=== PATIENT | female | born 1995 | race Caucasian/White ===

== ENCOUNTER 2019-04-30 20:44 | Emergency (ER) | payer BC ==
--- NOTE | 2019-04-30 21:18 | ER Report ---
History and Physical Time Seen By MD: 21:15 (NED MORALES DO) Time Seen By MD: 07:09 (KARELY VALENTINE DO) HPI/ROS CHIEF COMPLAINT: Suicidal ideation, depression HISTORY OF PRESENT ILLNESS: 23-year-old female presents ambulatory to the ER complaining of fleeting suicidal ideation for several weeks. Patient was seen by her counselor earlier today for several hours and encouraged to come in. Patient has no specific plan. Patient is being followed weekly by her primary counselor who is on vacation. She was seen by another counselor this earlier today. Patient denies drugs or alcohol. Patient denies previous psychiatric admission. She admits she's had depression in counseling since she was 12 years old. REVIEW OF SYSTEMS: Respiratory: No cough, no dyspnea. Cardiovascular: No chest pain, no palpitations. Gastrointestinal: No vomiting, no abdominal pain. Musculoskeletal: No back pain. (NED MORALES DO) HPI/ROS Please see Dr. Morales's note (KARELY VALENTINE DO) Allergies: Coded Allergies: No Known Drug Allergies (Unverified , 04/30/19) Home Meds Reported Medications Multivits,Ca,Minerals/Iron/FA (Thera M Plus Tablet) 1 Each Tablet, PO QDAY 05/03/19 Hydroxyzine Pamoate (VISTARIL) 50 Mg Capsule, 50 MG PO QHS, #30 CAPSULE 2 Refills 05/03/19 Lurasidone (LATUDA) 80 Mg Tab, 80 MG PO HS, #30 TAB 2 Refills Take with Food 05/03/19 Discontinued Scripts Lorazepam (ATIVAN) 1 Mg Tablet, 1 MG PO Q6-8H PRN for ANXIETY, #6 Prov:NED MORALES DO 05/01/19 Reviewed Nurses Notes: Yes Old Medical Records Reviewed: Yes (NED MORALES DO) Constitutional Vital Sign - Last 24 Hours 04/30/19 04/30/19 05/01/19 05/01/19 20:52 21:14 00:06 00:07 Temp 97.8 Pulse 129 116 110 110 Resp 20 B/P (MAP) 153/116 (128) 155/110 145/104 (118) Pulse Ox 93 96 96 95 O2 Delivery Room Air Room Air (KARELY VALENTINE DO) Physical Exam General Appearance: The patient is alert, has no immediate need for airway protection and no current signs of toxicity. Vital signs stable, afebrile, pulse ox normal, anxious and euphoric HEENT: Pupils equal and round no injection. Oropharynx without redness or exudate, mucous. Membranes are moist Respiratory: Chest is non tender, lungs are clear to auscultation. Cardiac: regular rate and rhythm Gastrointestinal: Abdomen is soft and non tender, no masses, bowel sounds normal. Musculoskeletal: Neck: Neck is supple and non tender. Extremities have full range of motion and are non tender. Skin: No rashes or lesions. DIFFERENTIAL DIAGNOSIS: After history and physical exam differential diagnosis was considered for depression including functional and major depression, situational depression, medication side effect, drugs, suicidal ideation, and alcohol abuse. (NED MORALES DO) Physical Exam Please see Dr. Morales's note (KARELY VALENTINE DO) Medical Decision Making Data Points Laboratory Hematology Test 04/30/19 22:15 White Blood Count 10.9 k/uL (4.5-11.0) Red Blood Count 5.10 M/uL (4.17-5.56) Hemoglobin 15.9 g/dL (12.0-16.0) Hematocrit 45.8 % (34.0-47.0) Mean Corpuscular Volume 89.8 fL (80.0-96.0) Mean Corpuscular Hemoglobin 31.1 pg (26.0-33.0) Mean Corpuscular Hemoglobin Concent 34.7 g/dL (32.0-36.0) Red Cell Distribution Width 13.5 % (11.5-14.5) Platelet Count 309 K/uL (150-450) Mean Platelet Volume 8.9 fL (7.2-11.1) Neutrophils (%) (Auto) 79.5 % (39.4-72.5) H Lymphocytes (%) (Auto) 12.6 % (17.6-49.6) L Monocytes (%) (Auto) 5.9 % (4.1-12.4) Eosinophils (%) (Auto) 1.5 % (0.4-6.7) Basophils (%) (Auto) 0.5 % (0.3-1.4) Nucleated RBC Relative Count (auto) 0.0 /100WBC Neutrophils # (Auto) 8.7 K/uL (2.0-7.4) H Lymphocytes # (Auto) 1.4 K/uL (1.3-3.6) Monocytes # (Auto) 0.6 K/uL (0.3-1.0) Eosinophils # (Auto) 0.2 K/uL (0.0-0.5) Basophils # (Auto) 0.1 K/uL (0.0-0.1) Nucleated RBC Absolute Count (auto) 0.00 K/uL Chemistry Test 04/30/19 22:15 Sodium Level 138 mmol/L (137-145) Potassium Level 3.7 mmol/L (3.5-5.0) Chloride Level 103 mmol/L (98-107) Carbon Dioxide Level 24 mmol/L (22-31) Blood Urea Nitrogen 7 mg/dl (7-18) Creatinine 0.70 mg/dl (0.52-1.04) Glomerular Filtration Rate Calc > 60.0 Random Glucose 95 mg/dl (75-110) Calcium Level 10.0 mg/dl (8.4-10.2) Magnesium Level 2.0 mg/dl (1.7-2.2) Total Bilirubin 0.7 mg/dl (0.2-1.3) Aspartate Amino Transf (AST/SGOT) 24 U/L (0-35) Alanine Aminotransferase (ALT/SGPT) 31 U/L (0-56) Alkaline Phosphatase 47 U/L (0-126) Total Protein 7.5 g/dl (6.3-8.2) Albumin 4.8 g/dl (3.5-5.0) Toxicology Test 04/30/19 22:08 04/30/19 22:15 Urine Opiates Screen Negative Urine Barbiturates Screen Negative Ur Tricyclic Antidepressants Screen Negative Urine Phencyclidine Screen Negative Urine Amphetamines Screen Negative Urine Benzodiazepines Screen Negative Urine Cocaine Screen Negative Urine Cannabinoids Screen Positive Salicylates Level < 10 mg/L Salicylate Last Dose Date unk Acetaminophen Level < 10 ug/ml Serum Alcohol < 10 mg/dl Urinalysis Test 04/30/19 22:08 Urine Color Straw Urine Clarity Clear Urine pH 6.0 pH (4.8-9.5) Urine Specific Hudson 1.001 Urine Protein Negative mg/dL (NEGATIVE) Urine Glucose (UA) Negative mg/dL (NEGATIVE) Urine Ketones Negative mg/dL (NEGATIVE) Urine Blood Negative (NEGATIVE) Urine Nitrite Negative (NEGATIVE) Urine Bilirubin Negative (NEGATIVE) Urine Urobilinogen Negative mg/dL (0.2-1.9) Urine Leukocyte Esterase Negative (NEGATIVE) Urine RBC None /HPF (0-2/HPF) Urine WBC 1 /HPF (0-5/HPF) Urine Squamous Epithelial Cells Few /LPF (</=FEW) Urine Bacteria Negative /HPF (NONE-FEW) Urine Mucus None /HPF (NONE-FEW) Urine HCG, Qualitative Negative (NEGATIVE) (KARELY VALENTINE DO) ED Course/Re-evaluation ED Course Patient was admitted to an examination room. H&P was done. The differential diagnosis was considered. Patient euphoric and high appearing with flighty ideas and agitation. She voices fleeting thoughts of suicide that resolved quickly for several weeks. She admits to polysubstance abuse with ecstasy, occasional cocaine and frequent cannabis. She admits to no medication use on a regular basis. Patient presented to clinic earlier today for an emergency evaluation by outpatient counselor, who referred the patient to the ER for possible medication treatment. 05/01/2019 12:47:49 am case discussed with Dr. Maya Salguero psychiatrist's on- call. They haveavailable upstairs for patient tonight. We will hold the patient in the ER and medicated with Zyprexa 5 mg to hopefully get her a decent night's sleep. Dr. Bryant will consult and evaluate this patient in the morning. Decision to Disposition Date: Apr 30, 2019 Decision to Disposition Time: 00:43 (NED MORALES DO) ED Course I assumed patient care from Dr. Morales at shift change at 7:00. I discussed the patient with Dr. Loaiza who accepted the patient to behavioral health services when a bed became available. Patient remained hemodynamically stable throughout course. Patient voluntarily signed in for admission Decision to Disposition Date: May 01, 2019 Decision to Disposition Time: 11:20 (KARELY VALENTINE DO) Depart Departure Latest Vital Signs Vital Signs Date Time Temp Pulse Resp B/P (MAP) Pulse Ox O2 Delivery O2 Flow Rate FiO2 05/01/19 00:07 110 95 05/01/19 00:06 145/104 (118) 04/30/19 21:14 97.8 20 Room Air (KARELY VALENTINE DO) Impression: Primary Impression: Anxiety Additional Impressions: Euphoria Suicidal ideation Cannabis use disorder, mild, abuse Condition: Condition Unchanged Disposition: XFER TO [facility] Problem Qualifiers NED MORALES DO Apr 30, 2019 21:18 KARELY VALENTINE DO May 01, 2019 07:13
[2019-04-30] MEDS ORDERED: LORazepam 1 MG TAB PO ONE (21:45)
[2019-04-30 22:29] LABS: PLATELET COUNT, AUTOMATED 309 K/uL (150-450)
[2019-05-01] MEDS ORDERED: LORA-1456 PO (00:03)
[2019-05-01] MEDS ORDERED: OLANZapine ZYDIS ODT 5MG TABDP PO ONE (00:45)
[2019-05-01 12:13] VITALS: BP 144/102
== END 2019-05-01 12:44 ==
LOC: ER 21:21
DX: F41.9 Anxiety disorder, unspecified (principal); R45.851 Suicidal ideations; F12.90 Cannabis use, unspecified, uncomplicated
CPT/HCPCS: 80305; 80320; 80329; 81001; 81025; 82040; 82247; 82310; 82374; 82435; 82565; 82947; 83735; 84075; 84132; 84155; 84295; 84443; 84450; 84460; 84520; 85025; 99284

== ENCOUNTER 2019-05-01 12:19 | Inpatient (IN) | payer BC ==
[~2019-05-01] VITALS: Ht 165.1 cm; Wt 74.4 kg
[~2019-05-01 12:19] MED LIST: LORA-1456 PO
[2019-05-01 12:45] VITALS: BP 124/82
[2019-05-01] MEDS ORDERED: MAG HYD/AL HYD/SIMETH 30ML UDC PO PRN (13:15)
[2019-05-01] MEDS ORDERED: ACETAMINOPHEN 325 MG TAB PO PRN (13:15)
[2019-05-01] MEDS: NICOTINE POLACRILEX 2 MG GUM PO PRN ×3 (14:37→20:38)
[2019-05-01] MEDS ORDERED: LORazepam 1 MG TAB PO ONE (18:05)
[2019-05-01 19:37] VITALS: BP 150/105
[2019-05-01 19:51] VITALS: BP 136/104
[2019-05-01] MEDS: hydrOXYzine PAMOATE 25 MG CAP PO SCH (20:34)
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
[2019-05-01] MEDS ORDERED: LURASIDONE 40 MG TAB PO SCH (21:00)
[2019-05-02 06:03] VITALS: BP 119/79
[2019-05-02] MEDS: MULTIVITAMINS TAB PO SCH (08:28)
[2019-05-02] MEDS: NICOTINE POLACRILEX 2 MG GUM PO PRN ×4 (08:49→21:06)
[2019-05-02] MEDS ORDERED: LORazepam 1 MG TAB PO PRN (09:40)
[2019-05-02] MEDS ORDERED: LURASIDONE 40 MG TAB PO ONE (09:40)
[2019-05-02] MEDS ORDERED: LITHIUM CARBONATE 300 MG CAP PO SCH (09:40)
[2019-05-02 14:40] VITALS: BP 118/80
--- NOTE | 2019-05-02 16:27 | BHS Progress Note ---
S - Subjective Progress Notes Subjective Pt sen in conference room with team. Pt is feeling more euphoric today, has not had any of the intrusive suicidal thoughts, feels "up, really good," saying "I know I feel way too up, if I wasn't in here I'd just go hook-up (have sex) again." Says she is having hard time sitting still, tech brought her an educational video re bipolar d/o, but she can't concentrate on it, is fidgity and playing with [employer]. Pt says she likes this feeling but recognizes that it is dalton, and not good for her. She tolerated the first dose of latuda well last night. I told her I think she probably will need to go on lithium given significant mood swings and dalton, but we still don't have TSH back, and pt has hx of previous tx with thyroid medications. So today we will give another 40 mg of latuda this am, and tonite begin 80 mg q HS. Will need to see if latuda alone can stabilize mood, or, if TSH is WNL tomorrow may go ahead and add lithium depending on clinical symptoms. Suicidal Ideation: None Homicidal Ideation: None S - Objective Physical Exam Vital Signs Vital Signs 05/02/19 14:40 Temp 99.1 Pulse 87 Resp 14 B/P (MAP) 118/80 (93) Pulse Ox 98 O2 Delivery Room Air Muscle Strength and Tone: WNL Gait and Station: Steady [facility] Medications Reviewed: Side Effects, Benefits of Medication, Risks Allergies Reviewed: Yes Mental Status Exam General Appearance: Casual, Well Groomed, Good Eye Contact, Cooperative, Polite, Good Interaction, Psychomotor Agitation Speech: Clear, Spontaneous, Normal Rhythm, Normal Volume, Normal Tone, Other (rapid) Mood: Hyperthymic Affect: Full and Appropriate, Agitated Thought Process: Organized, Logical, Goal Directed Thought Content: No Suicidal Ideation, No Homicidal Ideation, No Delusions, No Auditory Halllucinations, No Visual Hallucinations, No Thought Broadcasting, No Ideas of Reference, No Obsessions, No Compulsions, No Other Sensorium: Clear Cognition: Alert & Oriented-Person, Alert & Oriented-Place, Alert & Oriented- Time, Fpuvj-Fvygdnap-Daiygkfky Memory: Immediate, Recent, Remote Intelligence: Average Insight Judgment: Good [facility] Assessment and Plan [id number] Encounter Date: May 02, 2019 [id number] Encounter Time: 10:10 [facility] Plan: Necessary Precautions, Individual/Group Therapy, Admin/Titrate Meds, Educate Patient Tobacco Medications: Not Appropriate Condition Multpiple Antipsychotics Used: No Problems: (1) Bipolar disorder, curr episode mixed, severe, with psychotic features VICENTE CARSON MD May 02, 2019 16:27
[2019-05-02 20:12] VITALS: BP 110/78
[2019-05-02 20:14] VITALS: BP 118/92
[2019-05-02] MEDS: hydrOXYzine PAMOATE 25 MG CAP PO SCH (20:58)
[2019-05-02] MEDS ORDERED: LURASIDONE 40 MG TAB PO SCH (21:00)
[2019-05-03 05:22] VITALS: BP 123/80
[2019-05-03] MEDS: MULTIVITAMINS TAB PO SCH (08:05)
[2019-05-03] MEDS: NICOTINE POLACRILEX 2 MG GUM PO PRN ×3 (08:56→14:26)
[2019-05-03 11:41] VITALS: BP 146/91
[2019-05-03] MEDS ORDERED: LUR80PT PO (15:46)
[2019-05-03] MEDS ORDERED: HYDR50CA47 PO (15:48)
[2019-05-03] MEDS ORDERED: MULT-7 PO (15:49)
--- NOTE | 2019-05-04 14:39 | SCHAAF DISCHARGE ---
DATE OF ADMISSION: May 01, 2019 DATE OF DISCHARGE: May 03, 2019 ATTENDING PHYSICIAN Mp De La Cruz MD Patient was seen on the a.m. of 03 May 2019 approximately 0900 hours for note concerning this dictation. FINAL DIAGNOSES 1. Bipolar I disorder, recent mixed with psychotic features. 2. Cannabis use disorder, moderate. 3. Alcohol use disorder, moderate. REASON FOR ADMISSION Please see H and P for full details. This is a 23-year-old female, very pleasant, who has a past history of an unspecified mood disorder. Patient reported to the Emergency Room after noticing impulse thoughts of self-harm that were getting more intense. Patient was admitted voluntarily without incident. Patient worked primarily with staff psychiatrist, Dr. Maya Loaiza, while on the unit and was diagnosed with bipolar disorder. Patient also responded to Latuda after a long discussion of medications and previous response from other medications. Again, please refer to H and P for full details. Patient stabilized with 80 mg at bedtime of Latuda as well as some hydroxyzine at night, and patient deemed stable for discharge and wanting to discharge. Patient was very cooperative and pleasant throughout her stay on the unit and appeared to be an accurate historian. All other patient's symptoms resolved, and patient doing very well at time of discharge. PHYSICAL EXAMINATION Please see emergency room note. VITAL SIGNS: At the time of admission, temperature 97.6, pulse 62, respiratory rate 16, blood pressure 124/82, and pulse oximetry 95% on room air. At time of discharge, temperature 97.8, pulse 108, respiratory rate 15, blood pressure 146/91, and pulse oximetry 98% on room air. LABORATORY DATA At time of admission, CBC overall unremarkable. Chemistry panel unremarkable. TSH 2.70. Urinalysis unremarkable. screen negative. Toxicology screen positive for cannabis and undetectable serum alcohol level. No other drugs of abuse. MENTAL STATUS EXAMINATION UPON DISCHARGE GENERAL APPEARANCE, BEHAVIOR, AND ATTITUDE: This is a cooperative 23-year-old female making good eye contact, smiling, interacting well with this provider and other treatment team staff. Patient able to focus well and was able to recite months of the year accurately in reverse order. No bizarre mannerisms or tics. No psychomotor agitation or retardation. SPEECH: Within normal limits. Regular rate, rhythm, volume, and tone. MOOD: Described as okay and good overall. AFFECT: Full and mood congruent. THOUGHT PROCESSES: Appear goal directed, logical. No loose associations or flight of ideas. THOUGHT CONTENT: Free of auditory or visual hallucinations, ideas of reference, thought broadcastings, delusions, obsessions, compulsions, and patient adamantly denying suicidal or homicidal ideation. SENSORIUM: Clear. COGNITION: Alert and oriented to person, place, time, and situation. MEMORY: Immediate, recent, and remote estimated intact. INTELLIGENCE: Average based on interview. INSIGHT AND JUDGMENT: Considered grossly intact in the absence of cannabis and alcohol for ongoing outpatient management. RESULTS OF TESTING Imaging: None. Laboratory data: See above. CONSULTATIONS None. TREATMENT Patient received medications, participated in individual and group therapy. HOSPITAL COURSE After a long discussion with weekend staff psychiatrist, Dr. Maya Loaiza, patient and provider arrived at a conclusion to start Latuda, and patient responded well to this medication. It was titrated to 80 mg at bedtime with good results. Patient's symptoms had resolved, and patient was deemed stable to discharge to home. At the time of this dictation, it is notable that patient was denied access from insurance company to receive Latuda, which had proven beneficial while the patient was on the unit. Treating psychiatrist was notified, and treating psychiatrist is in touch with the patient at the time of this writing to find suitable alternative. CONDITION OF PATIENT ON DISCHARGE Stable. Considered a minimal risk to herself or others and appropriate for outpatient management. DISPOSITION Patient was discharged to home. It was intended that she would stop all cannabis, stop all alcohol, follow up with medications and therapy, and continue Latuda 80 mg at bedtime as well as Vistaril 50 mg at bedtime. However, as discussed earlier, patient called the unit stating that her insurance denied her access to Latuda, the very medication that stabilized her on an inpatient unit. She is currently in contact with treating psychiatrist in an effort to see if other suitable medications that insurance would pay for could be found. Patient would call crisis line again should symptoms not resolve or any further discussion about medications that insurance will not pay for. Risks, benefits, and alternatives of the above discharge plan were discussed. Informed consent was given to proceed with the above discharge plan by this cooperative, competent patient. [place]
== END 2019-05-03 16:15 | disposition home or self-care (01) | DRG 885 ==
LOC: BHS 12:19
PROVIDERS: ADMIT Psychiatry & Neurology Psychiatry; ATTEND Psychiatry & Neurology Psychiatry
DX: F31.64 Bipolar disorder, current episode mixed, severe, with psychotic features (principal); R45.851 Suicidal ideations; F12.20 Cannabis dependence, uncomplicated; F10.20 Alcohol dependence, uncomplicated; N80.9 Endometriosis, unspecified; Z91.5 Personal history of self-harm; Z91.410 Personal history of adult physical and sexual abuse; Y90.0 Blood alcohol level of less than 20 mg/100 ml
CPT/HCPCS: Q0177